=== PATIENT | female | born 1970 | race Caucasian/White ===

== ENCOUNTER 2024-09-22 11:56 | Outpatient (REF) | payer OTHER, SELFPAY ==
--- NOTE | ~2024-09-22 | XR_ITS ---
EXAMINATION: XR FOOT, RIGHT CLINICAL INFORMATION: Right foot pain COMPARISON: None available. TECHNIQUE: AP, lateral, and oblique views of the right foot. FINDINGS: There is some soft tissue swelling on the plantar surface of the foot at the inferior heel. The bones and soft tissues are otherwise unremarkable. No fracture. Alignment is anatomic. Joint spaces are maintained. Small corticated ovoid bony density overlying the talus, not acute. There is a tiny plantar calcaneal spur XR/XR foot RT min 3V IMPRESSION: Soft tissue swelling on the plantar surface of the foot at the inferior heel. No acute osseous injury. Electronically signed by: Geo Michaud MD 09/22/2024 06:26 PM EDT RP
== END 2024-09-22 11:57 | disposition home or self-care (01) ==
LOC: HO.XRAY 11:56
PROVIDERS: PCP Internal Medicine Medical Oncology; Visit Provider Internal Medicine Medical Oncology
DX: M79.671 Pain in right foot (principal)
CPT/HCPCS: 73630